=== PATIENT | female | born 1950 | race Caucasian/White ===

== ENCOUNTER 2022-09-11 19:13 | Emergency (ER) | payer OTHER, MEDICARE ==
[~2022-09-11] VITALS: Ht 170.2 cm; Wt 76.7 kg
[2022-09-11 19:59] LABS: APPEARANCE,URINE CLEAR (CLEAR); BILIRUBIN,URINE NEGATIVE (NEGATIVE); COLOR,URINE LIGHT-YELLOW (YELLOW); GLUCOSE, URINE (UA) NEGATIVE (NEGATIVE); KETONES,URINE NEGATIVE (NEGATIVE); LEUKOCYTE ESTERASE ,URINE NEGATIVE Leu/uL (NEGATIVE); NITRATE,URINE NEGATIVE (NEGATIVE); OCCULT BLOOD,URINE SMALL (NEGATIVE); PH,URINE 5.5 (5.0-8.0); PROTEIN,URINE NEGATIVE (NEGATIVE)
[2022-09-11 20:02] LABS: BACTERIA,URINE RARE /HPF (None Seen); MUCUS,URINE RARE LPF (None Seen); SQUAMOUS EPITHELIAL CELL,UR RARE /HPF (0-2); WBC,URINE 0-1 /HPF (0-1)
[2022-09-11 20:27] LABS: BASOPHILS % (AUTO) 0.3 % (0.0-5.0); EOSINOPHILS % (AUTO) 0.6 % (0.0-8.0); HEMATOCRIT 36.3 % (36-48); LYMPHOCYTES % (AUTO) 29.3 % (21.0-51.0); MEAN CORPUSCULAR HEMOGLOBIN 30.1 pg (27.0-33.0); MEAN CORPUSCULAR HGB CONC 32.8 g/dL (32.0-36.0); MEAN CORPUSCULAR VOLUME 91.7 fL (79-99); MONOCYTES % (AUTO) 12.6 % (3.0-13.0); NEUTROPHILS % (AUTO) 56.8 % (40.0-77.0); PLATELET COUNT (AUTO) 209 K/uL (130-400); RED BLOOD CELL COUNT(AUTO) 3.96 MIL/uL (4.00-5.50); RED CELL DISTRIBUTION WIDTH 12.7 % (11.0-15.5); WHITE BLOOD COUNT (AUTO) 7.1 K/uL (4.8-10.8)
[2022-09-11] MEDS ORDERED: IPRATROPIUM/ALBUTEROL SULFATE 3 ML SOLUTION IH ONE (20:30)
[2022-09-11 20:38] LABS: CREATININE 1.3 mg/dL (0.5-1.5); POTASSIUM 3.7 mmol/L (3.5-5.1)
[2022-09-11 20:45] LABS: ALBUMIN 3.6 g/dL (3.5-5.0); TOTAL PROTEIN, SERUM 7.1 g/dL (6.0-8.3)
[2022-09-11] MEDS ORDERED: IPRATROPIUM 0.5 MG/2.5 ML INH IH ONE (21:00)
[2022-09-11] MEDS ORDERED: ALBUTEROL 0.083% 2.5 MG/3 ML INH IH ONE (21:00)
[2022-09-11] MEDS ORDERED: PREDNISONE 20 MG TABLET PO ONE (21:30)
[2022-09-11 21:49] VITALS: BP 141/63
[2022-09-11] MEDS ORDERED: ALBUHFA IH (21:56)
[2022-09-11] MEDS ORDERED: BENZ-39 PO (21:56)
[2022-09-11] MEDS ORDERED: PRED20TA3 PO (21:56)
[2022-09-11] MEDS ORDERED: NIRM1TAB PO (21:56)
== END 2022-09-11 22:43 | disposition home or self-care (01) ==
LOC: EDH 19:13
DX: U07.1 COVID-19 (principal); J45.901 Unspecified asthma with (acute) exacerbation
CPT/HCPCS: 99285; 71045; 87635; 84484; 80053; 85025; 87804 ×2; 81001; 36415; 93005; 94640; C9803